=== PATIENT | female | born 1955 | race Caucasian/White ===

== ENCOUNTER 2018-03-17 08:00 | Day surgery (SDC) | payer OTHER ==
[2018-03-16 13:12] VITALS: BMI 29.0
[2018-03-17 09:49] LABS: Hemoglobin 13.7 g/dL (12.0-16.0)
[2018-03-17 10:21] LABS: Anion Gap 14 mmol/L (10-20); BUN (Urea Nitrogen) 9 mg/dL (9.8-20.1); Calc. Creatinine Clearance 67 mL/min (70-130); Calcium 10.8 mg/dL (7.8-10.44); Carbon Dioxide 24 mmol/L (23-31); Chloride 105 mmol/L (98-107); Estimated GFR-MDRD 56; Glucose 99 mg/dL (80-115); Sodium 139 mmol/L (136-145)
[2018-03-17] MEDS ORDERED: Lidocaine 1% w/Epinephrine 1:200K 30 ML VIAL ONE (10:40)
[2018-03-17] MEDS ORDERED: Ondansetron HCl/PF 4 MG/2 ML Vial ONE ×2 (10:57→13:03)
[2018-03-17] MEDS ORDERED: Fentanyl 100 MCG/2 ML VIAL ONE ×3 (10:57→13:33)
[2018-03-17] MEDS ORDERED: Famotidine/PF 20 mg/2ml Vial ONE (10:57)
[2018-03-17] MEDS ORDERED: Dexamethasone 20 MG/5 ML VIAL ONE (13:03)
[2018-03-17] MEDS ORDERED: Succinylcholine Chloride 20 MG/ML 10 ml SYRINGE FS ONE (13:03)
[2018-03-17] MEDS ORDERED: PHENYLEPHRINE-NS 100 MCG/ML 10 ML SYRINGE ONE (13:03)
[2018-03-17] MEDS ORDERED: ePHEDrine/0.9% NaCl/PF SYRINGE 50 mg/10 ml ONE (13:03)
[2018-03-17] MEDS ORDERED: PROPOFOL 200 MG/20 ML VIAL ONE (13:03)
[2018-03-17] MEDS ORDERED: Lidocaine 1% PF 5 ML VIAL ONE (13:03)
--- NOTE | 2018-03-17 16:30 | EKG ---
Test Reason : PREOP Blood Pressure : / mmHG Vent. Rate : 065 BPM Atrial Rate : 065 BPM P-R Int : 186 ms QRS Dur : 076 ms QT Int : 416 ms P-R-T Axes : 070 058 076 degrees QTc Int : 432 ms Normal sinus rhythm T wave abnormality, consider anterior ischemia Abnormal ECG No previous ECGs available Confirmed by ANDRY WHALEN ([id number]) on 03/17/2018 4:30:03 PM Referred By: REINIER Confirmed By:ANDRY WHALEN
--- NOTE | 2018-03-17 20:05 | OP ---
PREOPERATIVE DIAGNOSIS: Primary hyperparathyroidism. POSTOPERATIVE DIAGNOSIS: Primary hyperparathyroidism. PROCEDURE PERFORMED: Right neck exploration. FINDINGS: We not able to identify any distinct parathyroid gland despite a thorough search of the ri ght side of the neck and in the left side of the neck and anterior compartment. PROCEDURE IN DETAIL: After consent was obtained, the patient was identified, brought to the operatin g room and placed on the table in supine position. General anesthesia was obtained. The patient was positioned for surgery. The laryngeal nerve monitoring endotracheal tube was placed. We then proce eded with an incision and carried down through skin and subcutaneous tissues. After the patient was prepped and draped, the platysmal strap muscles were divided in midline. Anterior jugular vein neede d to be transected to facilitate retraction and suture ligated. We then dissected down the capsule. Dissected the strap muscles from the capsule. We then were able to retract the strap muscles latera lly while the [place] was used to rotate the right thyroid lobe medially. This then allowed for anti cipated site of where the parathyroid would be found to be explored. Exploration was through and ext ended being full anterior compartment. We dissected down to the trachea, the great vessels, esophagu s, anterior cervical spine, and brachial plexus. We also continued our dissection inferiorly towards the apex of the lung. At no point did anything suspicious for parathyroid become obvious. We then explored the lobe itself and found no distinct or attached nodule. The decision was made to explore the contralateral side and again no abnormalities were appreciated after a several and extended time searching for the parathyroid. The decision was made to discontinue the search and closed the wound. The wound was closed in layers with absorbable suture. The skin was closed with 5-0 Prolene. Ster ile dressing was applied. The patient was awakened, extubated, and taken to the recovery room in sta ble condition prior to discharge home.
== END 2018-03-17 15:46 | disposition home or self-care (01) ==
LOC: SDC 08:00
PROVIDERS: ATTEND Specialist
PROC: 0GJR0ZZ Inspection of Parathyroid Gland, Open Approach (ICD-10-PCS; principal; 2018-03-17)
DX: E21.0 Primary hyperparathyroidism (principal); M06.9 Rheumatoid arthritis, unspecified; F17.210 Nicotine dependence, cigarettes, uncomplicated; F41.9 Anxiety disorder, unspecified; F32.9 Major depressive disorder, single episode, unspecified; Z79.82 Long term (current) use of aspirin; Z79.899 Other long term (current) drug therapy; Z88.6 Allergy status to analgesic agent; Z88.8 Allergy status to other drugs, medicaments and biological substances
CPT/HCPCS: 36415; 80048; 85014; 85018; 93005; 93010; 96374; J0131; J1100; J2001; J2405; J2704; J3010; S0028

== ENCOUNTER 2018-03-31 13:30 | Day surgery (SDC) | payer OTHER ==
[2018-03-30 13:49] VITALS: BMI 28.3
[~2018-03-31 13:30] MED LIST: Dexamethasone 20 MG/5 ML VIAL ONE; Lidocaine 1% PF 5 ML VIAL ONE; Ondansetron HCl/PF 4 MG/2 ML Vial ONE; PHENYLEPHRINE-NS 100 MCG/ML 10 ML SYRINGE ONE; PROPOFOL 200 MG/20 ML VIAL ONE; Succinylcholine Chloride 20 MG/ML 10 ml SYRINGE FS ONE
[2018-03-31] MEDS ORDERED: Lidocaine 1% w/Epinephrine 1:200K 30 ML VIAL ONE (14:44)
[2018-03-31] MEDS ORDERED: Fentanyl 100 MCG/2 ML VIAL ONE ×3 (14:48→17:58)
[2018-03-31] MEDS ORDERED: Midazolam HCl 2 mg/2 ml Vial ONE (14:48)
[2018-03-31] MEDS ORDERED: Fentanyl 250 MCG/5 ML VIAL ONE (14:48)
[2018-03-31] MEDS ORDERED: CEFAZOLIN/Water 2 GM/20 ML SYRINGE ONE (15:04)
[2018-03-31] MEDS ORDERED: Hydrocodone-Acetamin 15 ML UDCUP ONE (19:15)
--- NOTE | 2018-04-01 10:40 | OP ---
PREOPERATIVE DIAGNOSES: Hyperparathyroidism. POSTOPERATIVE DIAGNOSES: Hyperparathyroidism. PROCEDURE PERFORMED: Completion thyroidectomy. PROCEDURE IN DETAIL: After consent was obtained, the patient was identified, brought to the operatin g room and placed on the table in supine position. General endotracheal anesthesia with laryngeal ne rve monitor was placed. The patient was positioned for surgery. The patient was prepped and draped and we proceeded with opening of the previous incision and the skin and subcutaneous tissu es and strap muscle. We then raised subplatysmal flaps and divided the neck in the strap muscles in midline. We were then able to dissect to the right thyroid which was identified and had been skeleto nized by the previous procedure. There was a fair amount of inflammatory tissue and adhesions encoun tered. The inferior vessels were suture ligated and divided between clamps as were the superior vess els and the middle vein. We then reflected the thyroid medially as we were identified the recurrent laryngeal nerve. The thyroid was then dissected from the pretracheal plane and divided in midline. The specimen was then sent for permanent histologic evaluation. We then turned attention to obtainin g hemostasis and then closing the lesion wound. The strap muscles were reapproximated and sutured to gether with a #4-0 Monocryl and 5-0 Monocryl was used to close the subcutaneous tissues and platysma. A running 5-0 Prolene was used for the skin. Sterile dressing was applied. The patient was awaken ed, extubated, and taken to recovery where she remained in stable condition prior to discharge home.
== END 2018-03-31 19:50 | disposition home or self-care (01) ==
LOC: SDC 13:30
PROVIDERS: ATTEND Specialist
PROC: 0GTK0ZZ Resection of Thyroid Gland, Open Approach (ICD-10-PCS; principal; 2018-03-31)
DX: D35.1 Benign neoplasm of parathyroid gland (principal); E21.3 Hyperparathyroidism, unspecified; M19.90 Unspecified osteoarthritis, unspecified site; F17.210 Nicotine dependence, cigarettes, uncomplicated; Z88.8 Allergy status to other drugs, medicaments and biological substances; Z88.6 Allergy status to analgesic agent; Z79.82 Long term (current) use of aspirin; Z79.899 Other long term (current) drug therapy
CPT/HCPCS: 88307; 96374; J1100; J2001; J2250; J2405; J2704; J3010